=== PATIENT | male | born 1985 | race Caucasian/White ===

== ENCOUNTER 2018-09-29 19:23 | Emergency (ER) | payer MEDICAID, OTHER ==
[2018-09-29] MEDS: KETOROLAC 30 MG INJ IM (20:32)
== END 2018-09-29 21:10 | disposition home or self-care (01) ==
LOC: FTE 19:23
DX: J34.9 Unspecified disorder of nose and nasal sinuses (principal)
CPT/HCPCS: 96372; 99284-25